=== PATIENT | male | born 1955 | race Caucasian/White ===

== ENCOUNTER → 2018-05-22 16:41 | Outpatient (CLI) | payer OTHER, SELFPAY ==
[2018-05-22 18:14] LABS: Appearance Urine UA CLEAR; Bilirubin Urine UA NEGATIVE (NEGATIVE); Color Urine UA YELLOW; Glucose Urine UA NEGATIVE (Normal); Ketones Urine UA NEGATIVE (NEGATIVE); Leukocyte Esterase Urine UA NEGATIVE (NEGATIVE); Nitrite Urine UA Negative (Negative); Occult Blood Urine UA 3+ (Negative); Protein Urine UA NEGATIVE (Negative); Urobilinogen Urine UA 0.2 E.U./dL (0.2); pH Urine UA 5.5 (4.5-8.0)
[2018-05-22 18:32] LABS: Bacteria Urine Occasional (0-1); RBC Urine 5-10/HPF (0-5/HPF); Squamous Epithelial Cell Urine 0-1 /HPF; WBC Urine 0-1/HPF (0-5/HPF)
== END ==
PROVIDERS: Family Provider Family Medicine; PCP Family Medicine; Visit Provider Urology
DX: N20.0 Calculus of kidney (principal)
CPT/HCPCS: 81001; 87086

== ENCOUNTER → 2020-12-10 10:46 | Outpatient (CLI) | payer BC, SELFPAY ==
[2020-12-10] MEDS: COVID-19 VACC #1, MRNA(MOD) 100 MCG/0.5 ML VIAL IM (10:54)
== END ==
PROVIDERS: Family Provider Family Medicine; PCP Family Medicine; Visit Provider Internal Medicine
DX: Z23 Encounter for immunization (principal)
CPT/HCPCS: 0011A; 91301

== ENCOUNTER → 2021-01-09 07:02 | Outpatient (CLI) | payer OTHER, SELFPAY ==
[2021-01-09 07:52] LABS: Hemoglobin A1C% w Est Avg Glu 5.5 % (4.0-6.0)
[2021-01-09 07:55] LABS: Alanine Aminotransferase 43 IU/L (<50); Albumin 4.2 g/dL (3.5-5.0); Albumin Globulin Ratio 1.5 (1.0-2.8); Alkaline Phosphatase 49 U/L (38-126); Aspartate Aminotransferase 30 IU/L (17-59); BUN Creatinine Ratio 21.4 (6-22); Bilirubin Total 0.6 mg/dL (0.2-1.3); Blood Urea Nitrogen 18 mg/dL (9-20); Calcium 9.2 mg/dL (8.4-10.2); Carbon Dioxide 26 mmol/L (22-32); Chloride 104 mmol/L (98-107); Cholesterol 204 mg/dL (140-199); Estimated Glomerular Filt Rate > 60.0 mL/min (>60); Globulin 2.8 g/dL (1.7-4.1); Glucose 98 mg/dL (80-110); HDL Cholesterol 40 mg/dL (40-60); HEMOLYSIS < 15 (0-50); LDL Cholesterol Calculated 132 mg/dL (<100); Potassium 4.3 mmol/L (3.4-5.1); Sodium 137 mmol/L (137-145); Triglycerides 160 mg/dL (35-150)
[2021-01-09 08:27] LABS: Prostate Specific Antigen Scrn 1.65 ng/mL (0.1-4.0); TSH w/ Reflex to FT4 2.07 uIU/mL (0.47-4.68)
[2021-01-09 08:36] LABS: Creatinine Urine Random 132.2 mg/dL
[2021-01-09 08:41] LABS: Microalbumi Creatinin Ratio Ur 5.2 ug/mg CR (<30); Microalbumin Urine Random 0.7 mg/dL (0-1.6)
[2021-01-09 09:19] LABS: Add Manual Diff / Slide Review NO; Basophils Absolute Auto 100 /uL (0-100); Basophils Percent Auto 0.9 % (0-2); Eosinophils Absolute Auto 300 /uL (0-450); Eosinophils Percent Auto 5.1 % (2-4); Hematocrit 45.7 % (41-53); Hemoglobin 15.2 g/dL (13.5-17.5); Lymphocytes Absolute Auto 1200 /uL (1100-4500); Lymphocytes Percent Auto 20.3 % (25-40); Mean Corpuscular HGB Conc 33.2 % (30-36); Mean Corpuscular Hemoglobin 28.6 PG (26-34); Mean Corpuscular Volume 86.1 fL (80-100); Monocytes Absolute Auto 600 /uL (0-900); Monocytes Percent Auto 10.4 % (3-14); Neutrophils Absolute Auto 3800 /uL (1500-7000); Neutrophils Percent Auto 63.3 % (50-75); Platelet Count 198 X10^3/uL (150-400); Red Blood Cell Count 5.31 X10^6/uL (4.5-5.9); Red Cell Distribution Width 13.1 % (11.6-14.8); White Blood Cell Count 5.9 X10^3/uL (4.5-11.0)
== END ==
PROVIDERS: Family Provider Family Medicine; PCP Family Medicine; Referring Provider Family Medicine; Visit Provider Family Medicine
DX: I10 Essential (primary) hypertension (principal); N19 Unspecified kidney failure; N20.0 Calculus of kidney; Z12.5 Encounter for screening for malignant neoplasm of prostate
CPT/HCPCS: 36415; 80053; 80061; 82043; 82570; 83036; 84443; 85025; G0103

== ENCOUNTER → 2021-05-15 13:56 | Outpatient (CLI) | payer OTHER, SELFPAY ==
--- NOTE | 2021-05-15 13:59 | DI.RAD.S_ITS ---
PROCEDURE: XR KUB INDICATIONS: r/o L renal calculi, hx of stones TECHNIQUE: One view of the abdomen acquired. COMPARISON: [facility], CR, KUB XRAY (1 VIEW ABDOMEN), 01/26/2016, 12:25. FINDINGS: Surgical changes and devices: None. Bowel: Bowel gas pattern is normal. Soft tissues: 7 millimeter and 3 millimeter calcifications projecting over the lower left renal shadow the level of the L4 vertebral body stable compared to January 26, 2016. Third calcification identified in prior study projecting over lower pole left kidney is not seen in the current study. There is a new 3 millimeter calcification projecting of the superior pole left kidney. Phlebolith within the left hemipelvis is stable. Visualized solid organ contours appear normal in size. Bones: No suspicious bony lesions. IMPRESSION: Probable left renal stones as described above. Dictated by: Zakia Carrasco MD, PhD on 05/15/2021 at 14:17 Approved by: Zakia Carrasco MD, PhD on 05/15/2021 at 14:20
[2021-05-15 14:11] LABS: Add Manual Diff / Slide Review NO; Basophils Absolute Auto 100 /uL (0-100); Basophils Percent Auto 1.1 % (0-2); Eosinophils Absolute Auto 200 /uL (0-450); Eosinophils Percent Auto 3.4 % (2-4); Hematocrit 45.5 % (41-53); Hemoglobin 15.4 g/dL (13.5-17.5); Lymphocytes Absolute Auto 1600 /uL (1100-4500); Lymphocytes Percent Auto 26.4 % (25-40); Mean Corpuscular Hemoglobin 28.9 PG (26-34); Monocytes Absolute Auto 500 /uL (0-900); Monocytes Percent Auto 8.2 % (3-14); Neutrophils Absolute Auto 3600 /uL (1500-7000); Neutrophils Percent Auto 60.9 % (50-75); Platelet Count 189 X10^3/uL (150-400); Red Blood Cell Count 5.35 X10^6/uL (4.5-5.9); Red Cell Distribution Width 12.9 % (11.6-14.8); White Blood Cell Count 5.9 X10^3/uL (4.5-11.0)
[2021-05-15 14:21] LABS: Alanine Aminotransferase 38 IU/L (<50); Albumin 4.6 g/dL (3.5-5.0); Albumin Globulin Ratio 1.6 (1.0-2.8); Alkaline Phosphatase 47 U/L (38-126); Aspartate Aminotransferase 28 IU/L (17-59); BUN Creatinine Ratio 18.9 (6-22); Bilirubin Total 0.5 mg/dL (0.2-1.3); Blood Urea Nitrogen 17 mg/dL (9-20); Calcium 9.3 mg/dL (8.4-10.2); Carbon Dioxide 25 mmol/L (22-32); Chloride 107 mmol/L (98-107); Estimated Glomerular Filt Rate > 60.0 mL/min (>60); Globulin 2.8 g/dL (1.7-4.1); Glucose 95 mg/dL (80-110); HEMOLYSIS 16 (0-50); Potassium 4.2 mmol/L (3.4-5.1); Sodium 138 mmol/L (137-145); Total Protein 7.4 g/dL (6.3-8.2)
[2021-05-15 14:41] LABS: Bacteria Urine None Seen
[2021-05-15 15:03] LABS: Appearance Urine UA SL CLOUDY; Bilirubin Urine UA NEGATIVE (NEGATIVE); Color Urine UA YELLOW; Glucose Urine UA NEGATIVE (Negative); Ketones Urine UA TRACE (NEGATIVE); Leukocyte Esterase Urine UA NEGATIVE (NEGATIVE); Nitrite Urine UA NEGATIVE (Negative); Occult Blood Urine UA 3+ (Negative); Protein Urine UA TRACE (Negative); Specific Gravity Urine UA 1.025 (1.000-1.035); Urobilinogen Urine UA 0.2 E.U./dL (0.2)
[2021-05-15 15:09] LABS: Amorphous Sediment Urine 1+; RBC Urine 30-100/HPF (0-5/HPF); Squamous Epithelial Cell Urine 0-1 /HPF (0-5/HPF); WBC Urine 0-1/HPF (0-5/HPF)
[2021-05-15 15:10] LABS: Mucus Urine 1+ (Negative)
== END ==
PROVIDERS: Family Provider Family Medicine; PCP Family Medicine; Referring Provider Nurse Practitioner; Visit Provider Nurse Practitioner
DX: N20.0 Calculus of kidney (principal); N34.3 Urethral syndrome, unspecified
CPT/HCPCS: 36415; 74018; 80053; 81001; 85025; 87086

== ENCOUNTER → 2021-05-20 08:36 | Outpatient (CLI) | payer OTHER, SELFPAY ==
--- NOTE | 2021-05-20 08:38 | DI.CT.S_ITS ---
PROCEDURE: CT ABDOMEN PELVIS WO CON INDICATIONS: Renal calculi abdominal pain TECHNIQUE: Noncontrast 5 mm thick sections acquired from the diaphragms to the symphysis. 5 mm coronal and sagittal reformats were then performed. For radiation dose reduction, the following was used: automated exposure control, adjustment of mA and/or kV according to patient size. COMPARISON: [facility], CT, ABDOMEN/PELVIS WITH CONTRAST, 07/21/2015, 23:01. FINDINGS: Image quality: Excellent. ABDOMEN: Lung bases: Lung bases are clear. Heart size is normal. Solid organs: Liver is normal in size. Gallbladder is unremarkable . Pancreas is normal in contours. Spleen is normal in size. No adrenal nodules. A horseshoe kidney is present. There is no hydronephrosis. There is a 1 mm nonobstructing right middle pole calcification. There is a nonobstructing left renal stone measuring 7 mm and a nonobstructing left renal stone measuring 2 mm. Peritoneum and bowel: Unenhanced bowel loops demonstrate normal wall thickness and caliber. No free fluid or air. Nodes and vessels: No retroperitoneal or mesenteric adenopathy by size criteria. Aorta and inferior vena cava are normal in caliber. Miscellaneous: No ventral hernias. PELVIS: Genitourinary: Bladder wall thickness is normal. Miscellaneous: Fat containing left inguinal hernia. No right inguinal hernia. Bones: No suspicious bony lesions. No vertebral body compression fractures. Lumbar degenerative change. Canal stenosis at L4-L5. IMPRESSION: 1. Horseshoe kidney with multiple nonobstructing stones. No hydronephrosis or hydroureter. 2. Left inguinal hernia containing fat. 3. Lumbar degenerative change with canal stenosis at L4-L5. Dictated by: Anatoly Santamaria M.D. on 05/20/2021 at 10:17 Approved by: Anatoly Santamaria M.D. on 05/20/2021 at 10:25
== END ==
PROVIDERS: Family Provider Family Medicine; PCP Family Medicine; Referring Provider Urology; Visit Provider Urology
DX: N20.0 Calculus of kidney (principal); R10.9 Unspecified abdominal pain; Q63.1 Lobulated, fused and horseshoe kidney; K40.90 Unilateral inguinal hernia, without obstruction or gangrene, not specified as recurrent; M47.816 Spondylosis without myelopathy or radiculopathy, lumbar region
CPT/HCPCS: 74176

== ENCOUNTER → 2021-05-26 15:04 | Outpatient (CLI) | payer OTHER, SELFPAY ==
--- NOTE | 2021-05-26 15:05 | DI.CT.S_ITS ---
PROCEDURE: CT ABDOMEN PELVIS WO CON INDICATIONS: Kidney stones TECHNIQUE: Noncontrast 5 mm thick sections acquired from the diaphragms to the symphysis. 5 mm coronal and sagittal reformats were then performed. For radiation dose reduction, the following was used: automated exposure control, adjustment of mA and/or kV according to patient size. COMPARISON: [facility], CT, CT ABDOMEN PELVIS WO CON, 05/20/2021, 8:48. FINDINGS: Image quality: Excellent. ABDOMEN: Lung bases: Lung bases are clear. Heart size is normal. Kidneys: Again noted is the presence of a horseshoe kidney. A 7 mm stone on the left was previously nonobstructive, in a calyx. It has migrated to the region of the left renal pelvis. It is currently nonobstructive. There is no hydronephrosis. However, it may potentially become intermittently obstructive. A small, 2 mm nonobstructing left stone is again identified. Other solid organs: Liver is normal in size. Gallbladder is unremarkable . Pancreas is normal in contours. Spleen is normal in size. No adrenal nodules. Peritoneum and bowel: Unenhanced bowel loops demonstrate normal wall thickness and caliber. No free fluid or air. Nodes and vessels: No retroperitoneal or mesenteric adenopathy by size criteria. Aorta and inferior vena cava are normal in caliber. Miscellaneous: No ventral hernias. PELVIS: Genitourinary: Bladder wall thickness is normal. Miscellaneous: No inguinal hernias or adenopathy. Bones: No suspicious bony lesions. No vertebral body compression fractures. IMPRESSION: 1. Horseshoe kidney. 2. A 7 mm stone has migrated from a left calyx to the left renal pelvis. There is no obstruction currently. It may potentially intermittently obstruct. 3. 2 mm nonobstructing left renal stone again noted. 4. Left inguinal hernia containing fat. Dictated by: Anatoly Santamaria M.D. on 05/26/2021 at 17:04 Approved by: Anatoly Santamaria M.D. on 05/26/2021 at 17:12
== END ==
PROVIDERS: Family Provider Family Medicine; PCP Family Medicine; Referring Provider Urology; Visit Provider Urology
DX: N20.0 Calculus of kidney (principal); N13.9 Obstructive and reflux uropathy, unspecified; N19 Unspecified kidney failure; Q63.1 Lobulated, fused and horseshoe kidney
CPT/HCPCS: 74176

== ENCOUNTER → 2021-06-13 09:52 | Outpatient (CLI) | payer OTHER, SELFPAY ==
[2021-06-13 10:36] LABS: COVID19 -Nasal RAPID Negative (Negative)
== END ==
PROVIDERS: Family Provider Family Medicine; PCP Family Medicine; Visit Provider Physician Assistant
DX: J02.9 Acute pharyngitis, unspecified (principal); R05.9 Cough, unspecified; Z20.822 Contact with and (suspected) exposure to COVID-19
CPT/HCPCS: 87635

== ENCOUNTER → 2021-06-17 09:37 | Outpatient (CLI) | payer OTHER, SELFPAY ==
[2021-06-17 17:10] LABS: COVID19 -Nasal RAPID Negative (Negative)
[2021-06-18 13:33] LABS: Appearance Urine UA CLEAR; Bilirubin Urine UA NEGATIVE (NEGATIVE); Color Urine UA YELLOW; Glucose Urine UA NEGATIVE (Negative); Ketones Urine UA NEGATIVE (NEGATIVE); Leukocyte Esterase Urine UA NEGATIVE (NEGATIVE); Nitrite Urine UA NEGATIVE (Negative); Occult Blood Urine UA TRACE-INTACT (Negative); Protein Urine UA NEGATIVE (Negative); Specific Gravity Urine UA 1.015 (1.000-1.035); Urobilinogen Urine UA 0.2 E.U./dL (0.2); pH Urine UA 6.5 (4.5-8.0)
[2021-06-18 14:24] LABS: Bacteria Urine Occasional (0-1); Culture Indicated Urine Cult Not Indicated; RBC Urine 1-5/HPF (0-5/HPF); Squamous Epithelial Cell Urine 0-1 /HPF (0-5/HPF); WBC Urine None Seen (0-5/HPF)
== END ==
PROVIDERS: Family Provider Family Medicine; PCP Family Medicine; Visit Provider Urology
DX: Z20.822 Contact with and (suspected) exposure to COVID-19 (principal); R30.0 Dysuria
CPT/HCPCS: 81001; 87635

== ENCOUNTER → 2021-06-19 10:47 | Day surgery (SDC) | payer OTHER, SELFPAY ==
[2021-06-16 08:12] VITALS: BMI 32.5
[2021-06-19] VITALS (9 sets, daily range): BP systolic 155–191; BP diastolic 90–107; PULSE 62–91; RESP 12–16; TEMP 36.1–36.4; O2SAT 96–98; BMI 31.4
--- NOTE | 2021-06-19 11:04 | PM.PREOP ---
Pre-operative Note COVID-19 COVID-19 status: Negative Result date/Date tested (Pos, Neg/Pending): 06/17/21 Interval Note History & Physical reviewed/Exam performed by Physician: Yes Changes to H&P: No
[2021-06-19] MEDS: LACTATED RINGERS 1,000 ML 42 ML IV (11:06)
[2021-06-19] MEDS: CEFAZOLIN 1 GM VIAL 2 GM IV (11:32)
--- NOTE | 2021-06-19 11:44 | SUR.OPER ---
Lithotomy on padded lithotripsy table, head on pillow, arms secured at side at <90 degrees abduction. Legs secured in padded stirrups.
--- NOTE | 2021-06-19 12:46 | PM.OP.1 ---
Procedure & Clinicians Procedure: Cystoscopy with left stent placement and left extracorporeal shockwave lithotripsy. Same procedure as scheduled: Yes Indications: This is a very pleasant 66-year-old male with a horseshoe kidney who presented with complaints of left abdominal pain. Patient has a history of stones and felt that the pain he was having was reminiscent of his prior stone pain. He did have imaging which showed a stone but was in a position which would not cause him pain. We then got other imaging changing his position and appeared that the stone was mobile and that he would likely benefit from the above procedure. He presents for left extracorporeal shockwave lithotripsy with cystoscopy and left stent placement. Surgeon: Brody Ornelas Click Yes if Unassisted: Yes Anesthesia Type: General Operative Notes Findings: Urethral meatus normal, penis normal, urethra normal, prostate showing minimal to moderate obstructive character, bladder is normal, ureteral orifices normal position with clear efflux. No other abnormalities noted within the bladder. The stone is noted in the left moiety of his horseshoe kidney. It is treated with 2000 shocks and appeared to fragment well. A 7 [place] Helenian multi length stent was left in good position in the left renal collecting system. The string was removed. Closure Type: not applicable Specimen(s): none sent Applied: other (Multi length stent 7 St Helenian left collecting system) Estimated Blood Loss (mL): 0 Blood products transfused: none Procedure in detail: After informed consent was obtained the patient was identified and brought to the operating room. He was placed in supine position on the Lithotripter and anesthesia was induced and maintained. After ensuring adequate level of anesthesia the patient was placed in the lithotomy position. He was then prepped and draped in a sterile fashion for transurethral procedure. After prepping, draping and ensuring an adequate level of anesthesia, a 21 [place] Helenian cystoscope was passed through the urethra, prostate and bladder were cystoscopy is performed with a 30 and 70 degree lens. The left ureteral orifice was once again identified and a 0.035 guidewire passed up and into the left collecting system under fluoroscopic visualization. The stent was then passed over the wire in position in the renal pelvis via fluoroscopic visualization and in the bladder under direct vision. With the stent in good position the nylon hardness or string was removed. The bladder was drained scope was removed and patient returned to the supine position on the Lithotripter. The stone was then targeted via the imaging targeting system and extra corporeal shock waves were delivered to the stone for total of 2000 shocks. At this point the stone appeared well fragmented the lithotripsy head was rotated out and fluoroscopic images were once again obtained confirming that the stone had been well fragmented. The patient was then awakened taken to the postanesthesia care unit having tolerated the procedure well patient will follow-up in my office in approximately 10 days with KUB to determine the level of stone fragment passage. Will also have the patient strain his urine and save any fragments. He is to bring these fragments to follow-up. Complications: none Post-operative Condition: stable Disposition: PACU Plan for aftercare: Discharged home and follow up my office in approximately 10 days.
[2021-06-19] MEDS: MEPERIDINE 50 MG/ML INJ 25 MG IV (13:39)
[2021-06-19] MEDS: PHENAZOPYRIDINE 100 MG TABLET 200 MG PO (13:45)
--- NOTE | 2021-06-19 13:57 | SUR.PHASEII ---
Pt presents with need to urinate , able to urinate small amount sanguinous urine with no stones noted in strainer. bp 182/102 post void, pt noted to be shaking, pt verbalized this is normal for him to do this after surgery, pt verbalized he is very uncomfortable, pt hooked up to monitor and demorol given as per md order with good results. Pt verbalized relief and no further shaking noted. BP repeated, 173/105, labetolol one time order 5 mg given as per md order.
--- NOTE | 2021-06-19 14:21 | SUR.PHASEII ---
Pt left w VSS no pain ,in stable condition
== END | disposition home or self-care (01) ==
PROVIDERS: Family Provider Family Medicine; PCP Family Medicine; Referring Provider Urology; Visit Provider Urology
PROC: (CPT 50590; principal; 2021-06-19 12:45)
PROC: (CPT 50590; 2021-06-19 12:45)
DX: N20.0 Calculus of kidney (principal); Q63.1 Lobulated, fused and horseshoe kidney; I10 Essential (primary) hypertension
CPT/HCPCS: 50590; 52332; J0330; J0690; J1100; J2175; J2405; J2704; J3010

== ENCOUNTER → 2021-06-29 10:18 | Outpatient (CLI) | payer OTHER, SELFPAY ==
--- NOTE | 2021-06-29 10:19 | DI.RAD.S_ITS ---
PROCEDURE: XR KUB INDICATIONS: calculus left kidney TECHNIQUE: One view of the abdomen acquired. COMPARISON: [facility], CT, CT ABDOMEN PELVIS WO CON, 05/26/2021, 15:12. [facility], CR, KUB XRAY (1 VIEW ABDOMEN), 01/26/2016, 12:25. [facility], CR, XR KUB, 05/15/2021, 14:02. FINDINGS: Surgical changes and devices: None. Bowel: Bowel gas pattern is normal. Soft tissues: No suspicious abdominal calcifications. Visualized solid organ contours appear normal in size. A nephroureteral stent is seen between the left kidney and the bladder. There is a pelvic phleboliths along the course of the distal ureter. A 6 mm left ureteral stone is unchanged in position compared to prior CT on 05/26/2021. Bones: No suspicious bony lesions. IMPRESSION: 6 mm left mid ureteral stone is unchanged in position since 05/26/2021. Dictated by: Darshan Holden M.D. on 06/29/2021 at 11:01 Approved by: Darshan Holden M.D. on 06/29/2021 at 11:04
== END ==
PROVIDERS: Family Provider Family Medicine; PCP Family Medicine; Referring Provider Urology; Visit Provider Urology
DX: N20.1 Calculus of ureter (principal); Z96.0 Presence of urogenital implants
CPT/HCPCS: 74018

== ENCOUNTER → 2021-06-30 13:58 | Outpatient (CLI) | payer OTHER, SELFPAY | PROVIDERS: Family Provider Family Medicine; PCP Family Medicine; Referring Provider Urology; Visit Provider Urology | DX: N39.0 Urinary tract infection, site not specified (principal); N20.0 Calculus of kidney; Q63.1 Lobulated, fused and horseshoe kidney | CPT/HCPCS: 81002; 87086 ==

== ENCOUNTER → 2021-07-06 08:56 | Outpatient (CLI) | payer OTHER, SELFPAY ==
--- NOTE | 2021-07-06 08:58 | DI.RAD.S_ITS ---
PROCEDURE: XR KUB INDICATIONS: Left renal calculus TECHNIQUE: One view of the abdomen acquired. COMPARISON: [facility], , XR KUB, 06/29/2021, 10:17. FINDINGS: Surgical changes and devices: Redemonstrated left ureteral stent Bowel: Bowel gas pattern is normal. Soft tissues: 6.4 mm calculus is again seen adjacent to the distal aspect of the ureteral stent. Visualized solid organ contours appear normal in size. Bones: No suspicious bony lesions. IMPRESSION: Persistent left ureteral calculus. Dictated by: Bam Amador M.D. on 07/06/2021 at 9:20 Approved by: Bam Amador M.D. on 07/06/2021 at 9:23
== END ==
PROVIDERS: Family Provider Family Medicine; PCP Family Medicine; Referring Provider Urology; Visit Provider Urology
DX: N20.1 Calculus of ureter (principal)
CPT/HCPCS: 74018

== ENCOUNTER → 2021-07-07 15:55 | Outpatient (CLI) | payer OTHER, SELFPAY ==
[2021-07-12 13:42] LABS: Ca oxalate dihydrate 10 % (.); Ca oxalate monohydr 90 % (.)
== END ==
PROVIDERS: Family Provider Family Medicine; PCP Family Medicine; Referring Provider Urology; Visit Provider Urology
DX: R30.0 Dysuria (principal); N20.0 Calculus of kidney
CPT/HCPCS: 82365; 87086

== ENCOUNTER → 2021-07-14 11:54 | Outpatient (CLI) | payer OTHER, SELFPAY ==
[2021-07-18 13:35] LABS: Ca oxalate dihydrate 10 % (.); Ca oxalate monohydr 90 % (.); Size 4x3 mm (.)
== END ==
PROVIDERS: Family Provider Family Medicine; PCP Family Medicine; Visit Provider Urology
DX: N20.0 Calculus of kidney (principal); Q63.1 Lobulated, fused and horseshoe kidney
CPT/HCPCS: 52310; 82365

== ENCOUNTER → 2021-07-24 14:43 | Outpatient (CLI) | payer OTHER, SELFPAY ==
[2021-07-25 09:48] LABS: Calcium 9.2 mg/dL (8.6-10.2); Parathyroid Hormone, Intact 42 pg/mL (15-65)
== END ==
PROVIDERS: Family Provider Family Medicine; PCP Family Medicine; Referring Provider Urology; Visit Provider Urology
DX: N20.0 Calculus of kidney (principal); Q63.1 Lobulated, fused and horseshoe kidney
CPT/HCPCS: 36415; 81002; 82310; 83970; 84550

== ENCOUNTER → 2022-05-02 06:01 | Outpatient (CLI) | payer OTHER, SELFPAY ==
--- NOTE | 2022-05-02 06:06 | DI.RAD.S_ITS ---
PROCEDURE: XR KUB INDICATIONS: History of kidney stones/horseshoe kidney TECHNIQUE: One view of the abdomen acquired. COMPARISON: [facility], CR, XR KUB, 07/06/2021, 8:51. FINDINGS: Surgical changes and devices: None. Bowel: Moderate fecal debris in the right colon. Soft tissues: Persistent 6 mm calculus noted in the hemipelvis, stable from the prior. Left ureteral stent has been removed. Visualized solid organ contours appear normal in size. Bones: No suspicious bony lesions. IMPRESSION: Persistent 6 mm calculus in the left hemipelvis may reflect pelvic phlebolith or unchanged left ureteral calculus Approved by: Elliot Rodríguez M.D. on 05/02/2022 at 8:21
== END ==
PROVIDERS: Family Provider Family Medicine; PCP Family Medicine; Referring Provider Urology; Visit Provider Urology
DX: N20.0 Calculus of kidney (principal)
CPT/HCPCS: 74018

== ENCOUNTER → 2022-05-12 16:13 | Outpatient (CLI) | payer OTHER, SELFPAY ==
--- NOTE | 2022-05-12 | DI.RAD.S_ITS ---
PROCEDURE: XR THORACIC SPINE 2V INDICATIONS: Thoracic spine pain TECHNIQUE: 2 views of the thoracic spine were acquired. COMPARISON: [facility], CT, CT ABDOMEN PELVIS WO CON, 05/26/2021, 15:12. [facility], CR, XR LUMBAR SPINE 2-3V, 05/12/2022, 16:19. FINDINGS: Bones: No fractures or dislocations. No suspicious bony lesions. 12 pairs of ribs are noted, and appear intact where visualized. Small vertebral body osteophytes. Soft tissues: No paravertebral stripe thickening. IMPRESSION: Mild degenerative change in the thoracic spine. Dictated by: Elian Nguyen M.D. on 05/12/2022 at 18:49 Approved by: Elian Nguyen M.D. on 05/12/2022 at 18:50
--- NOTE | 2022-05-12 | DI.RAD.S_ITS ---
PROCEDURE: XR CERVICAL SPINE 2V OR 3V INDICATIONS: Cervical spine pain TECHNIQUE: 2 view(s) of the cervical spine were acquired. COMPARISON: None. FINDINGS: Bones: No fractures or dislocations to the T1 level. The lateral masses of C1 appear intact on the odontoid view. Large osteophytes at C6. Loss of intervertebral disc space height most pronounced at C5-C6. Uncovertebral joint hypertrophy. No suspicious bony lesions. Soft tissues: No prevertebral soft tissue swelling. IMPRESSION: Moderate to severe degenerative change in the cervical spine. Dictated by: Elian Nguyen M.D. on 05/12/2022 at 18:46 Approved by: Elian Nguyen M.D. on 05/12/2022 at 18:47
--- NOTE | 2022-05-12 | DI.RAD.S_ITS ---
PROCEDURE: XR LUMBAR SPINE 2-3V INDICATIONS: Lumbar spine pain TECHNIQUE: 3 views of the lumbar spine were acquired. COMPARISON: None. FINDINGS: Bones: 5 [id number] vertebrae are present. There is normal bony alignment. Lower lumbar spine facet joint hypertrophy. Moderate-sized vertebral body osteophytes. Minimal multilevel retrolisthesis, for example of retrolisthesis L3 on L4 measuring 0.4 cm. Multilevel intervertebral disc space height loss, most pronounced at L2-L3. No vertebral body compression fractures. No suspicious bony lesions. Soft tissues: Overlying bowel gas pattern is normal. No suspicious soft tissue calcifications. IMPRESSION: Moderate to severe degenerative change in the lumbar spine. Dictated by: Elian Nguyen M.D. on 05/12/2022 at 18:48 Approved by: Elian Nguyen M.D. on 05/12/2022 at 18:49
== END ==
PROVIDERS: Family Provider Family Medicine; PCP Family Medicine; Referring Provider Chiropractor; Visit Provider Chiropractor
DX: M47.812 Spondylosis without myelopathy or radiculopathy, cervical region (principal); M47.816 Spondylosis without myelopathy or radiculopathy, lumbar region; M47.814 Spondylosis without myelopathy or radiculopathy, thoracic region; M99.11 Subluxation complex (vertebral) of cervical region; M99.02 Segmental and somatic dysfunction of thoracic region; M99.03 Segmental and somatic dysfunction of lumbar region; M99.04 Segmental and somatic dysfunction of sacral region; M99.05 Segmental and somatic dysfunction of pelvic region; M54.2 Cervicalgia; M54.6 Pain in thoracic spine; M54.50 Low back pain, unspecified
CPT/HCPCS: 72040; 72070; 72100

== ENCOUNTER → 2022-05-25 18:38 | Outpatient (CLI) | payer OTHER, SELFPAY ==
--- NOTE | 2022-05-25 18:41 | DI.MRI.S_ITS ---
PROCEDURE: MR LUMBAR SPINE WO CON INDICATIONS: radiculopathy lumbar region TECHNIQUE: Noncontrast sagittal T1 spin echo and T2 fast echo, sagittal STIR, and T2 fast spin echo through the lumbar spine. In cases with scoliosis, additional coronal T2 fast spin echo may be performed. COMPARISON: [facility], CT, CT ABDOMEN PELVIS WO CON, 05/26/2021, 15:12. [facility], CR, XR LUMBAR SPINE 2-3V, 05/12/2022, 16:19. FINDINGS: Image quality: Excellent. Alignment and Curvature: There is normal bony alignment. Bone Marrow: Marrow is of normal overall signal. No acute vertebral body compression fractures. Spinal Cord: Conus medullaris terminates at the L1 level. Visualized cord demonstrates normal signal and size. Paraspinous Soft Tissues: No paravertebral masses. The known horseshoe kidney is partially visualized. T12-L1: No significant abnormality is seen. L1-L2: Mild loss of disc height is seen. Loss of disc signal is seen. Mild to moderate disc bulge is seen. There is a superimposed central disc protrusion. Mild facet joint hypertrophy is seen. Moderate bilateral neural foraminal narrowing can be seen, right worse than left. Mild to moderate central canal narrowing is seen. L2-L3: Moderate to severe loss of disc height and disc signal can be seen. Reactive marrow endplate changes are seen, which are hyperintense on T1-weighted and T2-weighted imaging and most consistent with fatty metaplasia (Modic type II changes). At least moderate disc bulge is seen, with a central disc protrusion. Mild facet joint hypertrophy is seen. There is moderate to severe bilateral neural foraminal narrowing seen, with an associated a degree of compression seen upon the exiting nerve roots. Moderate to severe central canal narrowing is seen, as on series 5 image. L3-L4: The disc height is well-preserved. Loss of disc signal is seen at this level. Moderate generalized disc bulge is seen. There is a superimposed central disc protrusion. Mild to moderate facet hypertrophy is seen. There is moderate to severe right-sided and at least moderate left-sided neural foraminal narrowing. There is a degree of compression seen upon the exiting nerve roots. Moderate central canal narrowing is seen. L4-L5: Mild loss of disc height is seen. Loss of disc signal is seen. Moderate disc bulge is seen, with a central disc protrusion. At least moderate facet hypertrophy is seen. There is at least moderate right-sided and moderate to severe left-sided neural foraminal narrowing. There is a degree of compression seen upon the exiting nerve roots. Moderate to severe central canal narrowing is seen at this level. L5-S1: The disc height is well-preserved. Loss of disc signal is seen at this level. Mild generalized disc bulge is seen. There is a superimposed central/left disc extrusion, with inferior migration of the disc material. Mass effect can be seen upon the transiting left S1 nerve root, as on series 5, image 31. Mild to moderate facet hypertrophy is seen. There is moderate to severe bilateral neural foraminal narrowing seen, with an associated a degree of compression seen upon the exiting nerve roots. IMPRESSION: Multiple levels of relatively prominent lumbar spine degenerative change are seen, which are overall worst at the L2-L3 level. At L5-S1, there is a central/left disc extrusion, with associated mass effect upon the transiting left S1 nerve root. Several sites of significant neural foraminal narrowing can be seen, with associated exiting nerve root compression. Dictated by: John Philip M.D. on 05/26/2022 at 10:03 Approved by: John Philip M.D. on 05/26/2022 at 10:08
== END ==
PROVIDERS: Family Provider Family Medicine; PCP Family Medicine; Referring Provider Chiropractor; Visit Provider Chiropractor
DX: M99.13 Subluxation complex (vertebral) of lumbar region (principal); M54.16 Radiculopathy, lumbar region; M51.27 Other intervertebral disc displacement, lumbosacral region; M48.061 Spinal stenosis, lumbar region without neurogenic claudication; M48.07 Spinal stenosis, lumbosacral region
CPT/HCPCS: 72148

== ENCOUNTER → 2022-12-09 11:06 | Outpatient (CLI) | payer OTHER, SELFPAY ==
--- NOTE | 2022-12-09 | DI.MRI.S_ITS ---
PROCEDURE: MR BRAIN (IAC) WWO CON INDICATIONS: Other specified hearing loss, unspecified ear TECHNIQUE: Noncontrast sagittal T1 spin echo, axial FLAIR, axial gradient echo, axial diffusion and ADC through the brain. Axial thin-slice 3D CISS, coronal TruFISP, axial T1 spin echo with fat saturation through the internal auditory canals. After the administration of contrast, thin slice axial and coronal T1 spin echo with fat saturation through the internal auditory canals, and axial and coronal and sagittal T1 spin echo with fat saturation through the brain. COMPARISON: None. FINDINGS: Image quality: Excellent. Cerebellopontine angles: No cerebellopontine angle masses. Inner ear structures appear normally formed. No suspicious enhancement in the internal auditory canal or along the course of the 7th cranial nerve. CSF spaces: Ventricles are normal in size and shape. No extra-axial fluid collections. Basal cisterns are patent. Brain: No intracranial bleeds or mass effects. Connell-white matter interface is intact. No abnormal intracranial enhancement. Diffusion weighted images demonstrate no acute ischemic insults. Brainstem appears normal. Normal intravascular flow voids are present. Skull and face: Calvarial marrow signal is normal. Orbits appear normal. Sinuses: Sinuses are clear. Fluid is present in the left mastoid air cells. IMPRESSION: No acute intracranial process. Dictated by: Janis Anthony M.D. on 12/09/2022 at 12:44 Approved by: Janis Anthony M.D. on 12/09/2022 at 12:56
== END ==
PROVIDERS: Family Provider Family Medicine; PCP Family Medicine; Referring Provider Otolaryngology; Visit Provider Otolaryngology
DX: H91.8X9 Other specified hearing loss, unspecified ear (principal)
CPT/HCPCS: 70553

== ENCOUNTER → 2023-03-07 13:01 | Outpatient (CLI) | payer OTHER, SELFPAY ==
--- NOTE | 2023-03-07 13:02 | DI.RAD.S_ITS ---
PROCEDURE: XR KUB INDICATIONS: History of kidney stones/horseshoe kidney TECHNIQUE: One view of the abdomen acquired. COMPARISON: [facility], CR, XR KUB, 05/02/2022, 6:11. FINDINGS: Surgical changes and devices: None. Bowel: Bowel gas pattern is normal. Soft tissues: No suspicious abdominal calcifications. 6 mm calcification in left pelvis is again seen likely represent phleboliths. Visualized solid organ contours appear normal in size. Bones: No suspicious bony lesions. IMPRESSION: No definite renal calcification is seen. Stable 6 mm calcification in left hemipelvis likely represent phleboliths unchanged from prior study. Dictated by: Guido Mclaughlin M.D. on 03/07/2023 at 14:00 Approved by: Guido Mclaughlin M.D. on 03/07/2023 at 14:03
[2023-03-07 14:02] LABS: BUN Creatinine Ratio 15.3 (6-22); Blood Urea Nitrogen 13 mg/dL (9-20); Calcium 8.8 mg/dL (8.4-10.2); Carbon Dioxide 27 mmol/L (22-32); Chloride 102 mmol/L (98-107); Estimated Glomerular Filt Rate > 60 mL/min (>60); Glucose 85 mg/dL (80-110); HEMOLYSIS < 15 (0-50); Potassium 4.2 mmol/L (3.4-5.1); Sodium 135 mmol/L (137-145)
== END ==
PROVIDERS: Family Provider Family Medicine; PCP Family Medicine; Referring Provider Urology; Visit Provider Urology
DX: N20.0 Calculus of kidney (principal); Q63.1 Lobulated, fused and horseshoe kidney; Z01.812 Encounter for preprocedural laboratory examination; Z87.442 Personal history of urinary calculi
CPT/HCPCS: 36415; 74018; 80048

== ENCOUNTER → 2023-07-25 09:27 | Outpatient (CLI) | payer OTHER, SELFPAY ==
[2023-07-25 10:03] LABS: Add Manual Diff / Slide Review NO; Basophils Absolute Auto 0 /uL (0-100); Eosinophils Absolute Auto 100 /uL (0-450); Eosinophils Percent Auto 1.8 % (2-4); Hematocrit 45.8 % (41-53); Hemoglobin 15.3 g/dL (13.5-17.5); Lymphocytes Absolute Auto 1500 /uL (1100-4500); Lymphocytes Percent Auto 30.3 % (25-40); Mean Corpuscular HGB Conc 33.4 % (30-36); Mean Corpuscular Hemoglobin 28.5 PG (26-34); Mean Corpuscular Volume 85.3 fL (80-100); Monocytes Absolute Auto 500 /uL (0-900); Monocytes Percent Auto 10.6 % (3-14); Neutrophils Absolute Auto 2800 /uL (1500-7000); Neutrophils Percent Auto 56.3 % (50-75); Platelet Count 186 X10^3/uL (150-400); Red Blood Cell Count 5.37 X10^6/uL (4.5-5.9); Red Cell Distribution Width 13.3 % (11.6-14.8); White Blood Cell Count 4.9 X10^3/uL (4.5-11.0)
[2023-07-25 10:21] LABS: Alanine Aminotransferase 35 IU/L (<50); Albumin 4.3 g/dL (3.5-5.0); Albumin Globulin Ratio 1.4 (1.0-2.8); Alkaline Phosphatase 50 U/L (38-126); Aspartate Aminotransferase 28 IU/L (17-59); BUN Creatinine Ratio 19.1 (6-22); Blood Urea Nitrogen 17 mg/dL (9-20); Calcium 9.2 mg/dL (8.4-10.2); Carbon Dioxide 26 mmol/L (22-32); Chloride 104 mmol/L (98-107); Cholesterol 194 mg/dL (140-199); Estimated Glomerular Filt Rate > 60 mL/min (>60); Glucose 86 mg/dL (80-110); HDL Cholesterol 36 mg/dL (40-60); HEMOLYSIS < 15 (0-50); LDL Cholesterol Calculated 134 mg/dL (<100); Potassium 4.9 mmol/L (3.4-5.1); Sodium 135 mmol/L (137-145); Total Protein 7.3 g/dL (6.3-8.2); Triglycerides 118 mg/dL (35-150)
[2023-07-25 10:48] LABS: TSH w/ Reflex to FT4 1.94 uIU/mL (0.47-4.68)
[2023-07-25 15:39] LABS: Hep C Virus Ab w/Reflex Quant NEGATIVE s/c (NEGATIVE)
[2023-07-25 15:52] LABS: Creatinine Urine Random 251.6 mg/dL
[2023-07-25 15:55] LABS: Microalbumi Creatinin Ratio Ur 5.5 ug/mg CR (<30); Microalbumin Urine Random 1.4 mg/dL (0-1.6)
== END ==
PROVIDERS: Family Provider Family Medicine; PCP Family Medicine; Referring Provider Family Medicine; Visit Provider Family Medicine
DX: Z00.00 Encounter for general adult medical examination without abnormal findings (principal); I10 Essential (primary) hypertension; N20.0 Calculus of kidney; Q63.1 Lobulated, fused and horseshoe kidney; Z12.5 Encounter for screening for malignant neoplasm of prostate
CPT/HCPCS: 36415; 80053; 80061; 82043; 82570; 84443; 85025; 86803; G0103

== ENCOUNTER 2023-08-29 07:46 | Day surgery (SDC) | payer OTHER, SELFPAY ==
[2023-08-29] MEDS: LACTATED RINGERS 1,000 ML 42 ML IV (08:08)
[2023-08-29 08:10] VITALS: BP 143/94; PULSE 16; RESP 20; TEMP 36.7; O2SAT 97
--- NOTE | 2023-08-29 08:55 | PM.HP.1 ---
History of Present Illness History of Present Illness Date Patient Seen: 08/29/23 Time Patient Seen: 08:55 Chief complaint: Colonoscopy Narrative: Colon cancer screening. Last scope was approximately 10 years ago. No family history of significance and no symptoms [facility] Medical History (Updated 07/18/23 @ 14:52 by Jadon Godoy MD) Family history of colon cancer in mother History of dehydration Otitis externa Horseshoe kidney Calcium oxalate kidney stones Renal calculus, left Left lower quadrant abdominal pain History of renal insufficiency Ankle pain Hypertension Nephrolithiasis Surgical History Hx of lithotripsy Anesthesia History of ankle surgery (~1989) History of knee surgery Family History Mother Malignant neoplasm of colon, unspecified part of colon Cancer Father Cancer Social History household members: spouse Smoking Status: Never smoker alcohol intake: current Meds Home Medications and Allergies Home Medications Medication Instructions Recorded Confirmed Type lisinopril 10 mg tablet See Rx Instructions .Route 06/09/23 08/29/23 Rx .COMPLEX #90 tabs Allergies Allergy/AdvReac Type Severity Reaction Status Date / Time No Known Drug Allergies Allergy Verified 08/29/23 08:09 Review of Systems Review of Systems ROS: Yes All systems reviewed with the patient and are negative except as otherwise documented Exam Vital Signs (past 8 hours): - 08/29/23 08:10 Temperature 98.1 F Pulse Rate 16 L Respiratory Rate 20 Blood Pressure 143/94 H Pulse Oximetry 97 Oxygen Delivery Method Room Air Oxygen Delivery Method Room Air Const General: cooperative and healthy appearing [facility] Head: normocephalic and atraumatic Eyes Sclera: sclerae normal Neck Neck: trachea midline Resp Effort & Inspection: normal respiratory effort and able to speak in complete sentences Cardio Rate: regular rate Rhythm: regular rhythm GI Palpation: soft Skin General: elasticity normal and turgor normal Neuro General: patient alert, patient awake and patient oriented x3 Psych Mental Status: mental status grossly normal Judgment: judgment good Assessment & Plan Assessment & Plan narrative: Colon cancer screening with colonoscopy under anesthesia Time Spent With Patient Time with patient: less than 30 minutes
--- NOTE | 2023-08-29 09:13 | PM.OP.COLON ---
Operative Date/Time/Diagnoses Date of procedure: 08/29/23 Time of procedure: 09:14 Pre-op diagnosis: Colon cancer screening Post-op diagnosis: same Procedure & Clinicians Study performed: Colonoscopy with anesthesia Same procedure as scheduled: Yes Indications: Colon cancer screening Surgeon: Sarah Wolfe Procedure Notes Procedure in detail: Preop diagnosis: Colon cancer screening Postop diagnosis: Same Operative procedure: Colonoscopy with anesthesia Surgeon: Litzy Wolfe MD Findings: Normal colonoscopy. Scant diverticulosis of the sigmoid colon. No polyps. Procedure: Patient placed in lateral position. Rectal exam performed showing normal tone no masses. Colonoscope inserted into the rectum and advanced to ileocecal valve with minimal difficulty. Insufflation extraction scope and the above findings. Retroflex was included in the rectum Impression: No polyps, scant diverticulosis of the sigmoid colon. Plan repeat colonoscopy in 10 years unless otherwise indicated by change in clinical condition Specimen(s): none sent Complications: none Post-procedure Recommendations: Colonoscopy in 10 years Follow up: as needed Disposition: PACU
[2023-08-29 09:17] VITALS: BP 134/93; PULSE 83; RESP 15; TEMP 37; O2SAT 98
[2023-08-29 09:23] VITALS: BP 138/86; PULSE 85; RESP 16; O2SAT 95
[2023-08-29 09:28] VITALS: BP 135/83; PULSE 69; RESP 24; TEMP 36.8; O2SAT 97
== END 2023-08-29 09:35 | disposition home or self-care (01) ==
PROVIDERS: PCP Family Medicine; Referring Provider Surgery; Visit Provider Surgery
PROC: 0DJD8ZZ Inspection of Lower Intestinal Tract, Via Natural or Artificial Opening Endoscopic (ICD-10-PCS; CPT 45378; principal; 2023-08-29 08:45)
DX: Z12.11 Encounter for screening for malignant neoplasm of colon (principal); K57.30 Diverticulosis of large intestine without perforation or abscess without bleeding
CPT/HCPCS: 45378; J2704

== ENCOUNTER → 2023-12-09 08:19 | Outpatient (CLI) | payer OTHER, SELFPAY ==
[2023-12-09 09:10] LABS: Influenza A - CEPHEID Flu A NEGATIVE (NEGATIVE); Influenza B - CEPHEID Flu B NEGATIVE (NEGATIVE); Respiratory Syncytial Virus Negative (Negative)
[2023-12-09 09:12] LABS: COVID-19 CEPHEID 4-PLEX PCR Negative (Negative)
== END ==
PROVIDERS: PCP Family Medicine; Visit Provider Nurse Practitioner Family
DX: R50.9 Fever, unspecified (principal); R05.1 Acute cough
CPT/HCPCS: 0241U

== ENCOUNTER → 2023-12-09 08:25 | Outpatient (CLI) | payer OTHER, SELFPAY ==
--- NOTE | 2023-12-09 08:27 | DI.RAD.S_ITS ---
PROCEDURE: XR CHEST 2V INDICATIONS: Cough TECHNIQUE: 2 views of the chest were acquired. COMPARISON: None. FINDINGS: Surgical changes and devices: None. Lungs and pleura: Lungs are clear. No pleural effusions or pneumothorax. Mediastinum: Mediastinal contours are normal. Heart size is normal. Bones and chest wall: No suspicious bony abnormalities. Soft tissues appear unremarkable. IMPRESSION: No consolidation identified. Dictated by: Elian Nguyen M.D. on 12/09/2023 at 12:28 Approved by: Elian Nguyen M.D. on 12/09/2023 at 12:29
== END ==
PROVIDERS: PCP Family Medicine; Referring Provider Nurse Practitioner Family; Visit Provider Nurse Practitioner Family
DX: R05.1 Acute cough (principal); R50.9 Fever, unspecified
CPT/HCPCS: 0241U; 71046